=== PATIENT | female | born 1930 | race Caucasian/White ===

== ENCOUNTER 2016-12-26 11:43 | Emergency (ER) | payer MEDICARE, BC ==
[~2016-12-26 11:43] MED LIST: AMLODIPINE PO; LIPITOR10 MG PO; NITROGLYCERIN0.4 MG SL; OMEPRAZOLE20 MG PO; PAXIL DPS20 MG PO; POTASSIUM CHLO10 MEQ PO; PROVENTIL HFA6.7 GM IH; TORSEMIDE20 MG PO; TRANDOLAPRIL2 MG PO; TYLENOL EXTRA500 MG PO; XARELTO15 MG PO; [UNRECOGNIZED DRUG - OTHER] PO
--- NOTE | 2016-12-27 16:41 | ER ---
ADMIT: 12/26/2016 RM/LOC: ER [facility] MR#: [id number] [address] [id number] [place] [address] Emergency Room Report SEX: F AGE: 86 : 1930 DATE: 12/26/2016 ADDENDUM: An 86-year-old white female, coming in with abdominal pain. No nausea, no vomiting. Kind of in the left lower quadrant. CT scan is essentially negative except for she does have fairly significant calcifications throughout, but she does have known vascular disease. At this time, we are going to try her on a little Bentyl 20 q.6 hours p.r.n. pain and then have her follow up as needed. CONDITION ON DISCHARGE: Good. Mauri Wolf MD/ kyle JOB #: [id number] CC: Mauri Wolf MD, Attending Physician
== END 2016-12-26 15:30 | disposition home or self-care (01) ==
LOC: ER 11:43
DX: R10.84 Generalized abdominal pain (principal); I10 Essential (primary) hypertension; Z79.899 Other long term (current) drug therapy; Z90.710 Acquired absence of both cervix and uterus; Z88.0 Allergy status to penicillin; Z88.8 Allergy status to other drugs, medicaments and biological substances

== ENCOUNTER 2017-01-15 16:59 | Emergency (ER) | payer MEDICARE, BC ==
--- NOTE | 2017-01-30 15:34 | ER ---
ADMIT: 01/15/2017 RM/LOC: ER [facility] MR#: [id number] [address] [address] [place] [address] Emergency Room Report SEX: F AGE: 86 : 1930 DATE: 01/15/2017 ADDENDUM: CHIEF COMPLAINT: Double vision. HISTORY OF PRESENT ILLNESS: This is an 86-year-old, who does have a history of a CVA years ago. She is on Xarelto at this time. Today, she was just watching some kind of musical or coir event at [employer]. She said she started to have double vision, kind of vague headache. By the time she arrives to the ER, she feels significantly better. Her blurred vision has gone and just has kind of dull headache. COURSE IN THE EMERGENCY ROOM: CT of her head, EKG, CBC, and BMP was done. Everything is negative for any acute findings. I am sending her home. Her diplopia has not returned while here in the emergency room. In fact, her headache has completely resolved. I told her to go home, rest, push fluids. Follow up with her primary care physician to be rechecked. CLINICAL IMPRESSION: Diplopia, resolved prior to ER visit. JAGUAR Domingo / Mauri Wolf MD / kyle JOB #: [id number] CC: Mauri Wolf MD, Attending Physician Melvin Brown MD, Family Physician
== END 2017-01-15 19:00 | disposition home or self-care (01) ==
LOC: ER 16:59
DX: H53.2 Diplopia (principal); J45.909 Unspecified asthma, uncomplicated; I10 Essential (primary) hypertension; G43.909 Migraine, unspecified, not intractable, without status migrainosus; K21.9 Gastro-esophageal reflux disease without esophagitis; Z88.0 Allergy status to penicillin; Z88.5 Allergy status to narcotic agent; Z91.041 Radiographic dye allergy status